=== PATIENT | female | born 1960 | race Caucasian/White ===

== ENCOUNTER 2021-06-04 00:11 | Emergency (ER) | payer OTHER ==
[~2021-06-04] VITALS: Ht 165.1 cm; Wt 82.6 kg
[2021-06-04] MEDS ORDERED: CYCLOBENZAPRINE10 MG PO (02:12)
--- OUTSIDE RECORDS SUMMARY | 2021-06-04 02:46 | XMS ---
PreManage Notification: WENDY TREADWELL Security [employer] Events No recent Security Events currently on file CRITERIA MET - PDMP CARE PROVIDERS WAI PETTIT Nurse Practitioner Current PHONE: [phone] Peter has no Care Guidelines for this patient. EHui VISIT COUNT (12 MO.) 1 KAREN Gee TOTAL 1 NOTE: Visits indicate total known visits. ED/UCC VISIT TRACKING (12 MO.) 06/04/2021 00:12 KAREN [facility] OR TYPE: Emergency COMPLAINT: - CHEST PAIN INPATIENT VISIT TRACKING (12 MO.) No inpatient visits to display in this time frame [email or web address]
--- NOTE | 2021-06-05 15:16 | EKG ---
[facility] [address] [place], [place] [address] Signed Normal sinus rhythm Nonspecific ST and T wave abnormality Abnormal ECG No previous ECGs available Confirmed by JJ CH MD ([id number]) on 06/05/2021 3:16:46 PM Electronically Signed By: JJ CH MD 06/05/21 1516 PATIENT NAME: WENDY TREADWELL [place] Electrocardiogram DATE OF : 62 PHYSICIAN: JJ CH MD REPORT #: [id number] REPORT IS CONFIDENTIAL AND NOT TO BE RELEASED WITHOUT AUTHORIZATION
== END 2021-06-04 02:32 | disposition home or self-care (01) ==
LOC: ED 00:11
DX: R07.89 Other chest pain (principal); K21.9 Gastro-esophageal reflux disease without esophagitis; I25.10 Atherosclerotic heart disease of native coronary artery without angina pectoris; Z88.8 Allergy status to other drugs, medicaments and biological substances
CPT/HCPCS: 36415; 71045; 71260; 80053; 83735; 83880; 84484; 85025; 85379; 85610; 93005; 93010; 99285-25; Q9967